=== PATIENT | female | born 1990 | race Caucasian/White ===

== ENCOUNTER 2017-02-05 11:54 | Emergency (ER) | payer OTHER ==
[~2017-02-05] VITALS: Ht 152.4 cm; Wt 52.3 kg
[~2017-02-05 11:54] MED LIST changes: -BIRTH CONTROL PO
[2017-02-05 12:03] VITALS: TEMP 98.5
[2017-02-05] MEDS ORDERED: BIRTH CONTROL PO (12:03)
[2017-02-05 13:55] VITALS: BP 120/90; PULSE 77
== END 2017-02-05 14:00 | disposition home or self-care (01) ==
LOC: COL.ER 11:54
DX: Z04.41 Encounter for examination and observation following alleged adult rape (principal)

== ENCOUNTER → 2017-02-05 | Outpatient (REF) ==
[~2017-02-05] MED LIST: BIRTH CONTROL PO; TAMIFLU 75MG75 MG PO
== END ==
LOC: COL.ER 12:13
DX: Z02.89 Encounter for other administrative examinations (principal)